=== PATIENT | female | born 1950 | race Caucasian/White ===

== ENCOUNTER → 2018-09-02 | Outpatient (CLI) | payer MEDICARE, BC ==
[~2018-09-02] MED LIST: BLOOD PRESSURE MEDIC; COUMADIN10 MG PO; GLUCOSAMINE & C1 CAP PO; MULTIPLE VITAMI1 CAP PO; PHENTERMINE30 M1 PO; VITAMIN D31000 IU PO
== END ==
LOC: MC.RAD 13:28
DX: Z12.31 Encounter for screening mammogram for malignant neoplasm of breast (principal); N64.89 Other specified disorders of breast

== ENCOUNTER → 2018-09-24 | Outpatient (CLI) | payer MEDICARE, BC | LOC: MC.RAD 12:54 | DX: N64.89 Other specified disorders of breast (principal) | CPT/HCPCS: G0279 ==